=== PATIENT | female | born 1955 | race Caucasian/White ===

== ENCOUNTER 2017-07-23 06:47 | Day surgery (SDC) | payer OTHER ==
[2017-07-22 11:26] VITALS: BMI 44.5
[2017-07-23] VITALS (15 sets, daily range): BP systolic 110–138; BP diastolic 55–80; PULSE 80–90; RESP 14–30; Ht 154.9 cm; Wt 99.4 kg
[~2017-07-23] VITALS: Ht 154.9 cm; Wt 99.4 kg
[~2017-07-23 06:47] MED LIST: ASPI-664 PO; CEFAZOLIN 2 GM/50 ML (PMX) 50 ML IVPB ONE; DULO30CA45 PO; GABA300C PO; HYDR25TA6 PO; LISI10TA2 PO; MTF1000T PO; OMEP20CA16 PO; SIMV40TA3 PO; TRAM50TA2 PO
[2017-07-23] MEDS ORDERED: CHOL200078 PO (07:44)
[2017-07-23] MEDS ORDERED: FENTAnyl 50 MCG/ML VIAL ONE (08:31)
[2017-07-23] MEDS ORDERED: ROCURONIUM 50 MG INJ ONE (09:00)
[2017-07-23] MEDS ORDERED: SUCCINYLCHOLINE CHLORIDE 100 MG/5 ML SYG IV ONE (09:00)
[2017-07-23] MEDS ORDERED: PROPOFOL 20 ML ONE (09:00)
[2017-07-23] MEDS ORDERED: SUGAMMADEX SODIUM 200 MG/2 ML VIAL IV ONE (09:00)
[2017-07-23] MEDS ORDERED: LIDOCAINE 2% (SDV) 5 ML INJ ONE (09:00)
[2017-07-23] MEDS ORDERED: CEFAZOLIN 1 GM INJ ONE (09:00)
[2017-07-23] MEDS ORDERED: PHENYLephrine (100 MCG/ML) 5ML SYG ONE (09:04)
--- NOTE | 2017-07-23 09:31 | PD.PPDC ---
ALARM INSTALLATION TECHNICIAN Discharge Instruction Condition Patient Condition: Good Activity/Restrictions Activity: Normal Activity May Shower Restrictions: No Exercising No Lifting No Driving No Sexual Activity Nothing in the Vagina No [place] No Tampons, douche Return to clinic for CHILD WELFARE ASSISTANT Instructions: Fever greater than 101 [place] Worsening abdominal pain Excessive Vaginal Bleeding More than 2 pads per hour Unable to tolerate diet DELMAR MICHAELS MD Jul 23, 2017 09:31
--- NOTE | 2017-07-23 09:51 | SIPON ---
Date/Time of Note Date/Time of Note DATE: 07/23/17 TIME: 09:44 Operative Report Preoperative Diagnosis endometrial hyperplasia polyp versus fibroid. postmenopausal bleeding diabetes hypertension Postoperative Diagnosis same Operation/Procedure Performed FRACTIONAL D&C HYSTEROSCOPIC RESECTION OF ENDOMETRIAL MASS Surgeon see signature line radiology physician assistant NONE Anesthesia: general Estimated blood loss: minimal Transfusion Required none Specimen ENDOMETRIAL MASS Grafts/Implants none Complications none DELMAR MICHAELS MD Jul 23, 2017 09:51
--- NOTE | 2017-07-23 09:55 | HPN ---
Date/Time of Note Date/Time of Note DATE: 07/23/17 TIME: 09:54 Interval H&P Admission Note Pt. seen H&P reviewed: No system changes DELMAR MICHAELS MD Jul 23, 2017 09:55
[2017-07-23] MEDS ORDERED: KETOROLAC 30 MG INJ IV PRN (10:00)
[2017-07-23] MEDS ORDERED: DIPHENHYDRAMINE 50 MG INJ IV PRN (10:00)
[2017-07-23] MEDS ORDERED: MEPERIDINE 25 MG INJ IV PRN (10:00)
[2017-07-23] MEDS ORDERED: FENTAnyl 50 MCG/ML VIAL IV PRN ×2 (10:00)
[2017-07-23] MEDS ORDERED: METOCLOPRAMIDE 10 MG INJ IV PRN (10:00)
[2017-07-23] MEDS ORDERED: HYDROmorphONE (0.2 MG/ML) 10ML SYG IV PRN ×2 (10:00)
[2017-07-23] MEDS ORDERED: ONDANSETRON 4 MG INJ IV PRN (10:00)
--- NOTE | 2017-07-23 11:24 | OPR ---
DATE OF OPERATION: 07/23/2017 PROCEDURE: Fractional D and C hysteroscopy, resection of endometrial mass. PREOPERATIVE DIAGNOSES: Endometrial hyperplasia, polyp versus fibroid, postmenopausal bleeding, katiuska betes, hypertension. POSTOPERATIVE DIAGNOSIS: Endometrial mass, SURGEON: Delmar Xie MD ANESTHESIOLOGIST: Dr. Rios DESCRIPTION OF PROCEDURE: The patient was given general anesthesia, placed in the lithotomy positio n. The perineal and vaginal area were prepped and draped. Confirmatory examination under anesthesi a revealed that the uterus was normal size, anteverted and the adnexa were nonpalpable were at rophic vaginal area. The speculum was placed and the cervix was held with forceps. Endocervical cu rettage was done. The uterus was sounded to a depth of 3 inches. TruClear hysteroscope was placed and visualization of the area revealed that there was an endometrial mass that was resected with the TruClear hysteroscope retrieving the mass through the system for pathology. Postoperative visualiz ation of the cavity revealed that the mass was entirely removed, and there was no active bleeding. The patient tolerated the procedure well and left the OR awake and stable. Sponge counts, instrumen t counts were correct and intravenous antibiotics were given for prophylaxis. Dictated By: DELMAR EVANS/NTS Conf#: [id number] DID#: [id number]
== END 2017-07-23 11:58 | disposition home or self-care (01) ==
LOC: SDS 06:47
PROVIDERS: ATTEND Obstetrics & Gynecology
DX: N84.0 Polyp of corpus uteri (principal); E11.9 Type 2 diabetes mellitus without complications; I10 Essential (primary) hypertension; E78.5 Hyperlipidemia, unspecified; E66.01 Morbid (severe) obesity due to excess calories; Z68.41 Body mass index [BMI] 40.0-44.9, adult
CPT/HCPCS: 58558; 82962; 88305; J0690; J2175; J3010; Z7512; Z7610; J2370

== ENCOUNTER 2018-06-17 06:22 | Day surgery (SDC) | END 2018-06-17 12:00 | disposition home or self-care (01) ==

== ENCOUNTER 2018-08-25 08:31 | Day surgery (SDC) | END 2018-08-25 13:54 | disposition home or self-care (01) ==